=== PATIENT | female | born 1960 | race Caucasian/White ===

== ENCOUNTER 2021-03-19 10:21 | Emergency (ER) | payer MEDICAID ==
--- NOTE | 2021-03-19 11:52 | EDM.PDOC ---
ED HPI GENERAL MEDICAL PROBLEM - General Chief Complaint: General Stated Complaint: HIGH BLOOD PRESSURE Time Seen by Provider: 03/19/21 11:30 Source of Information: Reports: Patient, Old Records, RN History Limitations: Reports: Other (incomplete records) - History of Present Illness INITIAL COMMENTS - FREE TEXT/NARRATIVE: 60 yo female with a pHx of HTN and a cerebral aneurysm presents for elevated BP. She is currently prescribed 3 different meds for BP control, but is having SE's from 2 out of the 3. She can't tolerate her ARB or her Beta chapito. She can tolerate and continues her HCTZ. She called the clinic today with her concerns and could not get through to them so came here. She is not currently having a GOMEZ or chest pain. She has exertional SOB that is chronic. She is a former smoker. Has a remote hx of a CVA. Also, has not tolerated amlodipine in the past. Onset: Gradual Duration: Day(s):, Getting Worse Location: Reports: Generalized Quality: Reports: Other (no pain) Severity: Moderate Improves with: Reports: Medication Worsens with: Reports: Other (time) Context: Reports: Other (See HPI) Associated Symptoms: Denies: Confusion, Chest Pain, Diaphoresis, Nausea/Vomiting, Seizure, Shortness of Breath (not any worse than usual) Treatments BOTANICAL TECHNICAL OFFICER: Reports: Other (see below) (none) Middle Back Pain Score (Numeric/FACES): 7 - Related Data Allergies Allergy/AdvReac Type Severity Reaction Status Date / Time fentanyl Allergy Cannot Verified 03/19/21 11:01 Remember Home Meds: Home Meds Albuterol Sulfate [Albuterol Sulfate Hfa] 2 puff INH Q4H PRN 03/19/21 [History] Aspirin [Adult Low Dose Aspirin EC] 81 mg PO DAILY 03/19/21 [History] Clopidogrel [Plavix] 75 mg PO DAILY 03/19/21 [History] Losartan [Cozaar] 100 mg PO DAILY 03/19/21 [History] Metoprolol Tartrate 25 mg PO BID 03/19/21 [History] hydroCHLOROthiazide [Hydrochlorothiazide] 25 mg PO DAILY 03/19/21 [History] Past Medical History HEENT History: Reports: Impaired Vision Cardiovascular History: Reports: Hypertension, [place] Respiratory History: Reports: Other (See Below) Other Respiratory History: uses inhailer for post covid symptoms Gastrointestinal History: Reports: Other (See Below) Other Gastrointestinal History: hernia surgery x4 Genitourinary History: Reports: Renal Calculus AUTO TESTER History: Reports: , Spontaneous Musculoskeletal History: Reports: Fracture Other Musculoskeletal History: arms,collar bone Neurological History: Reports: CVA, Migraines Psychiatric History: Reports: Anxiety Hematologic History: Reports: Blood Transfusion(s), Other (See Below) Other Hematologic History: antibody in blood Oncologic (Cancer) History: Reports: Cervix Dermatologic History: Reports: Other (See Below) Other Dermatologic History: moles cut out - Infectious Disease History Infectious Disease History: Reports: Chicken Pox, Measles, Mumps - Past Surgical History Female Surgical History: Reports: Hysterectomy, Other (See Below) Social & Family History - Tobacco Use Tobacco Use Status *Q: Former Tobacco User Years of Tobacco use: 30 Packs/Tins Daily: 0.2 Used Tobacco, but Quit: Yes Month/Year Tobacco Last Used: Dec 2016 Second Hand Smoke Exposure: No - Caffeine Use Caffeine Use: Reports: Coffee - Recreational Drug Use Recreational Drug Use: No ED ROS GENERAL - Review of Systems Review Of Systems: See Below Constitutional: Reports: No Symptoms HEENT: Reports: No Symptoms Respiratory: Reports: No Symptoms Cardiovascular: Reports: Blood Pressure Problem, Dyspnea on Exertion (chronic) GI/Abdominal: Reports: No Symptoms : Reports: No Symptoms Musculoskeletal: Reports: No Symptoms Skin: Reports: No Symptoms ED EXAM, GENERAL - Physical Exam Exam: See Below Exam Limited By: No Limitations General Appearance: Alert, WD/WN, No Apparent Distress Eye Exam: Bilateral Eye: Normal Inspection Ears: Normal External Exam, Normal Canal, Hearing Grossly Normal Ear Exam: Bilateral Ear: Auricle Normal, Canal Normal Nose: Normal Inspection, No Blood Throat/Mouth: Normal Inspection, Normal Lips, Normal Oropharynx, No Airway Compromise. No: Normal Voice (raspy smoker's voice) Head: Atraumatic, Normocephalic Neck: Normal Inspection Respiratory/Chest: No Respiratory Distress, Lungs Clear, Normal Breath Sounds, No Accessory Muscle Use Cardiovascular: Regular Rate, Rhythm, No Edema Back Exam: Normal Inspection Extremities: Normal Inspection, Normal Range of Motion, Non-Tender, No Pedal Edema Neurological: Alert, Oriented, CN II-XII Intact, Normal Cognition, No Motor/Sensory Deficits Psychiatric: Normal Affect, Normal Mood Skin Exam: Warm, Dry, Intact, Normal Color, No Rash Course - Vital Signs Last Recorded V/S: Last Vital Signs Temp 36.3 C 03/19/21 11:24 Pulse 107 H 03/19/21 11:26 Resp 14 03/19/21 11:26 BP 165/107 H 03/19/21 11:26 Pulse Ox 95 03/19/21 11:26 - Orders/Labs/Meds Orders: Active Orders 24 hr Category Date Time Status Cardiac Monitoring [RC] .As Directed Care 03/19/21 11:14 Active Labs: Laboratory Tests 03/19/21 03/19/21 Range/Units 11:41 11:59 Sodium 142 (140-148) mmol/L Potassium 3.3 L (3.6-5.2) mmol/L Chloride 102 (100-108) mmol/L Carbon Dioxide 23 (21-32) mmol/L Anion Gap 20.3 H (5.0-14.0) mmol/L BUN 11 D (7-18) mg/dL Creatinine 0.8 D (0.6-1.0) mg/dL Est Cr Clr Drug Dosing 63.42 mL/min Estimated GFR (MDRD) > 60 (>60) Glucose 106 (74-106) mg/dL Calcium 9.6 (8.5-10.1) mg/dL Magnesium 1.6 L (1.8-2.4) mg/dL Meds: Medications Discontinued Medications Generic Name Dose Route Start Last Admin Trade Name Freq PRN Reason Stop Dose Admin Magnesium Oxide 400 mg 03/19/21 12:17 Magnesium Oxide 400 Mg Tab PO 03/19/21 12:18 ONETIME ONE Potassium Chloride 40 meq 03/19/21 11:59 03/19/21 12:17 Potassium Chloride 20 Meq Tab.Er PO 03/19/21 12:00 40 meq ONETIME ONE Administration Departure - Departure Time of Disposition: 12:30 Disposition: Home, Self-Care 01 Condition: Fair Clinical Impression: Hypokalemia, Hypomagnesemia, Medication intolerance HTN (hypertension) Qualifiers: Hypertension type: essential hypertension Qualified Code(s): I10 - Essential (primary) hypertension - Discharge Information *PRESCRIPTION DRUG MONITORING PROGRAM REVIEWED*: Not Applicable *COPY OF PRESCRIPTION DRUG MONITORING REPORT IN PATIENT ARIANE: Not Applicable Referrals: Katarzyna Samuel PA [Primary Care Provider] - Forms: ED Department Discharge Additional Instructions: Your potassium and magnesium levels were a little low today so I have prescribed supplements for you to take to get these back to normal Try diltiazem for your elevated BP. See your provider by the end of the week in the clinic for a BP recheck and to see if this new med agrees with you. All these new prescriptions were sent to your pharmacy. Sepsis Event Note (ED) - Evaluation Sepsis Screening Result: No Definite Risk - Focused Exam Vital Signs: Vital Signs Temp Pulse Resp BP Pulse Ox 03/19/21 11:26 107 H 14 165/107 H 95 03/19/21 11:24 36.3 C 106 H 13 192/110 H 98 03/19/21 11:05 36.3 C 106 H 13 192/110 H 98 - My Orders Last 24 Hours: My Active Orders 03/19/21 11:14 Cardiac Monitoring [RC] .As Directed - Assessment/Plan Last 24 Hours: My Active Orders 03/19/21 11:14 Cardiac Monitoring [RC] .As Directed
[2021-03-19] MEDS ORDERED: Potassium Chloride 20 MEQ Tab.ER PO ONE (11:59)
[2021-03-19] MEDS ORDERED: Magnesium Oxide 400 MG Tab PO ONE (12:17)
== END 2021-03-19 12:45 | disposition home or self-care (01) ==
LOC: JP.ED 10:21
DX: I10 Essential (primary) hypertension (principal); T44.7X5A Adverse effect of beta-adrenoreceptor antagonists, initial encounter; E83.42 Hypomagnesemia; E87.6 Hypokalemia; I25.2 Old myocardial infarction; Z87.891 Personal history of nicotine dependence; Z79.899 Other long term (current) drug therapy; Z88.8 Allergy status to other drugs, medicaments and biological substances; Z79.82 Long term (current) use of aspirin
CPT/HCPCS: 36415; 80048; 83735; 99283; A9270